=== PATIENT | male | born 1985 | race Caucasian/White ===

== ENCOUNTER 2017-05-16 12:34 | Emergency (ER) | payer OTHER ==
[~2017-05-16] VITALS: Ht 175.3 cm; Wt 85.0 kg
[2017-05-16 12:39] VITALS: BP 134/65; PULSE 71; RESP 15; TEMP 98; O2SAT 99
--- NOTE | 2017-05-16 13:01 | PD ---
HPI Chief Complaint: Pain: Acute or Chronic Time Seen by Provider: 12:51 Travel History International Travel<30 days: No Contact w/Intl Traveler<30days: No Traveled to known affect area: No History of Present Illness HPI 32-year-old male presents the emergency primary status post injury to the left knee while training at [employer] in [place]. Patient works for the [employer]. This is a workplace injury. Patient states he fell jumping and with tunnel landing on a concrete corner directly to the anterior left knee. He was seen at [employer] by their nurse, but no x-rays were taken. He continues to have swelling and stiffness in the anterior portion of the knee. Patient is able to extend the knee fully, but has difficulty with complete flexion due to stiffness and the swelling. Patient is been doing all of his duties but wanted to get this followed up as is not improving. He has not had x-rays at this time. His pain is 3 out of 10. He was using ice for the first week but it didn't seem to change. He is not taking any medications. He has no known drug allergies PFSH Past Medical History Medical History: Denies Significant Hx Diminished Hearing: No Immunizations Current: Yes Tetanus Vaccination: < 5 Years Influenza Vaccination: Yes Past Surgical History Surgical History: No Previous Surgery Social History Alcohol Use: Yes (1 X WEEKLY) Tobacco Use: No Substance Use: No Allergies-Medications (Allergen,Severity, Reaction): Coded Allergies: No Known Allergies (Unverified , 05/16/17) Reported Meds & Prescriptions Reported Meds & Active Scripts Active No Active Prescriptions or Reported Medications Review of Systems Except as stated in HPI: all other systems reviewed are Neg General / Constitutional: No: Fever Eyes: No: Visual changes HENT: No: Headaches Cardiovascular: No: Chest Pain or Discomfort Respiratory: No: Shortness of Breath Gastrointestinal: No: Abdominal Pain Genitourinary: No: Dysuria Musculoskeletal: Positive: Other (see history of present illness.), No: Pain Skin: No Rash Neurologic: No: Weakness Psychiatric: No: Depression Endocrine: No: Polydipsia Hematologic/Lymphatic: No: Easy Bruising Physical Exam Narrative GENERAL: Patient appears in no acute distress. SKIN: Warm and dry. Normal color. Normal turgor. No abrasions. No cellulitis. No erythema. No warmth. HEAD: Atraumatic. Normocephalic. EYES: Pupils equal and round. No scleral icterus. No injection or drainage. ENT: No nasal bleeding or discharge. Mucous membranes pink and moist. NECK: Trachea midline. No JVD. CARDIOVASCULAR: Regular rate and rhythm. RESPIRATORY: No accessory muscle use. Clear to auscultation. Breath sounds equal bilaterally. GASTROINTESTINAL: Abdomen soft, non-tender, nondistended. Hepatic and splenic margins not palpable. MUSCULOSKELETAL: Extremities without clubbing, cyanosis, or edema. No obvious deformities. Patient has obvious prepatellar bursitis on the left. He has no laxity, with a negative drawer test. Pain is minimal with palpation. The pre- patella bursa is moderately swollen but not indurated, without signs of infection. NEUROLOGICAL: Awake and alert. No obvious cranial nerve deficits. Motor grossly within normal limits. Five out of 5 muscle strength in the arms and legs. Normal speech. PSYCHIATRIC: Appropriate mood and affect; insight and judgment normal. Data Data Last Documented VS Vital Signs Date Time Temp Pulse Resp B/P Pulse Ox O2 Delivery O2 Flow Rate FiO2 05/16/17 12:39 98.0 71 15 134/65 99 Orders Knee, Complete (4vws) (05/16/17 13:01) [facility] Medical Decision Making Medical Screen Exam Complete: Yes Emergency Medical Condition: Yes Differential Diagnosis Workplace injury. Left knee contusion. Left knee prepatellar bursitis. Narrative Course Patient is in no acute distress. X-rays of the left knee are obtained. X-ray shows no bony injury or dislocation. Anterior bursitis is noted on x-ray. Worker's Comp. forms completed. Patient is referred to orthopedics through his Worker's Comp. provider. Patient take Tylenol and ibuprofen as needed. No restrictions are warranted based on the patient's history and physical. Diagnosis Primary Impression: Accident at workplace Additional Impression: Prepatellar bursitis, left knee Referrals: Mickey Huber Jr., MD Orthopedist call for appointment Patient Instructions: General Instructions, Knee Bursitis (ED) Additional Instructions: X-ray shows no bony injury or dislocation. Anterior bursitis is noted on x-ray. Worker's Comp. forms completed. Patient is referred to orthopedics through his Worker's Comp. provider. Patient take Tylenol and ibuprofen as needed. No restrictions are warranted based on the patient's history and physical. Med/Other Pt SpecificInfo: No Meds Exist/No RX given Scripts No Active Prescriptions or Reported Meds Disposition: 01 DISCHARGE HOME Condition: Kodi Crawford May 16, 2017 13:01
--- NOTE | 2017-05-16 13:28 | RADRPT ---
EXAM DATE/TIME: 05/16/2017 13:15 [facility] COMPARISON: No previous studies available for comparison. INDICATIONS : Trauma/ Left knee pain x 2 weeks. Pt injured his knee while training at work. MEDICAL HISTORY : None. SURGICAL HISTORY : None. ENCOUNTER: Initial ACUITY: 1 day PAIN SCORE: 2/10 LOCATION: Left knee FINDINGS: Four view examination of the left knee demonstrates no evidence of fracture or dislocation. Bony min eralization is normal. The articular surfaces are intact. The anterior soft tissues are prominent. CONCLUSION: 1. Probable anterior bursitis. 2. No fracture. Pawel Donald MD on May 16, 2017 at 13:26 Board Certified Radiologist. This report was verified electronically.
== END 2017-05-16 14:25 | disposition home or self-care (01) ==
LOC: NEPD 12:34
DX: M70.42 Prepatellar bursitis, left knee (principal); M25.662 Stiffness of left knee, not elsewhere classified; W22.09XD Striking against other stationary object, subsequent encounter; Y99.0 Civilian activity done for income or pay
CPT/HCPCS: 73564; 99283